=== PATIENT | female | born 2000 | race Hispanic/Latino ===

== ENCOUNTER 2022-12-22 03:43 | Emergency (ER) | payer OTHER ==
[2022-12-22] MEDS ORDERED: Acetaminophen 500 MG TAB ONE (04:12)
== END 2022-12-22 04:22 | disposition home or self-care (01) ==
LOC: ERS 03:43
DX: J02.9 Acute pharyngitis, unspecified (principal); R50.9 Fever, unspecified; Z20.822 Contact with and (suspected) exposure to COVID-19
CPT/HCPCS: 87635; 99283